=== PATIENT | male | born 1980 | race Caucasian/White ===

== ENCOUNTER 2016-12-31 00:13 | Emergency (ER) | payer OTHER ==
[~2016-12-31] VITALS: Ht 177.8 cm; Wt 97.7 kg
[~2016-12-31 00:13] MED LIST: ADVIL 200MG TA200 MG PO; FISH OIL500 MG; LIPITOR 10MG10 MG PO; MUCINEX 60600 MG/TA1 PO; MULTIVITAMIN1 CTB PO; NEXIUM 40MG40 MG PO; NO HOME MEDICATIONS; NORCO 325 MG-51 TAB PO; THERAFLU COLD PO; TYLENOL 500MG500 MG PO; ZOFRAN ODT4 MG PO
[2016-12-31 00:16] VITALS: TEMP 98.6
[2016-12-31] MEDS ORDERED: NORCO 325 MG-7.1 TAB PO (02:37)
[2016-12-31 02:56] VITALS: BP 149/96; PULSE 74
== END 2016-12-31 02:58 | disposition home or self-care (01) ==
LOC: COL.ER 00:13
DX: M54.31 Sciatica, right side (principal)
CPT/HCPCS: J1885; J3360